=== PATIENT | female | born 1990 | race Caucasian/White ===

== ENCOUNTER 2025-04-27 17:58 | Emergency (ER) | payer BC, SELFPAY ==
[2025-04-27 18:01] VITALS: BP 132/86
[2025-04-27 18:29] LABS: Hematocrit 37.7 % (37.0-47.0); Hemoglobin 12.4 g/dL (12.0-16.0); Mean Corp Hgb Conc. 32.9 g/dL (33.0-37.0); Mean Corpuscular Volume 91.5 fL (81.0-99.0); Nucleated Red Blood Cells % 0 %; Platelet Count 192 10^3/uL (130-400); Red Cell Dist. Width 11.8 % (11.5-14.5)
[2025-04-27 18:45] LABS: HCG, Serum Qualitative Screen Negative
[2025-04-27 18:49] LABS: ALT (SGPT) < 10 U/L (0-35); AST (SGOT) 17 U/L (14-36); Albumin 4.8 g/dl (3.5-5.0); Alkaline Phosphatase 30 U/L (38-126); Blood Urea Nitrogen 13 mg/dl (7-17); Calcium 9.7 mg/dl (8.4-10.2); Carbon Dioxide 27 mmol/L (22-30); Chloride 107 mmol/L (98-107); Glucose 97 mg/dl (70-99); Potassium 4.0 mmol/L (3.5-5.1); Sodium 139 mmol/L (135-145); Total Protein 7.5 g/dl (6.3-8.2); eGFR > 60.00
[2025-04-27 20:41] VITALS: BP 110/74
--- NOTE | 2025-04-27 23:14 | ED.GENMED ---
History of Present Illness
General
Chief Complaint: Headache
Source: patient
Exam Limitations: none
Time Seen by Provider: 04/27/25 22:53
Nursing documentation reviewed up to this point in time: agreed with
History of Present Illness
History of Present Illness:
Note:
CHIEF COMPLAINT(S)
Severe headache.
HISTORY OF PRESENT ILLNESS
The patient is a 34-year-old female who presents with a severe headache that began about a week ago. The headache came on mildly and has persisted since onset. The patient describes the pain as a pressure-like sensation, primarily located in the
occipital region, radiating downwards. She notes that it is aggravated by position changes, particularly when standing, which causes a feeling of impending head burst. No fever has been reported, and the patient has not experienced congestion. The
patient mentioned a history of sensitivity to caffeine, noting past migraines induced by caffeine intake. Despite stopping caffeine consumption, the headache persists. She observes some relief upon exercising. The pain is not typical of her usual
migraines, as it does not respond to ibuprofen. The patient denies any chest pain, upper limb numbness, or palpitations. Light does not exacerbate the headache as it typically would with a migraine. She has experienced occasional nausea. She denies
any recent overexertion in hot weather and reports her last menstrual period as normal. No control use or other medications were noted. Other contributing factors considered include tension headaches or possible caffeine withdrawal due to her
hypersensitivity to caffeine.
Evaluated by her PCP today and sent to the ED for further evaluation.
PHYSICAL EXAM
General: Alert, no acute distress.
Skin: Warm, dry.
Head: Normocephalic, atraumatic.
Neck: Supple, trachea midline. No midline bony tenderness. Very minimal tenderness paracervical without palpable muscle spasm. There is full range of motion without difficulty nor pain. No meningismus. No soft tissue swelling. No rash
appreciated. No adenopathy.
Eyes, Ears, Nose, Mouth, and Throat: Oral mucosa moist. Minimally boggy pale blue turbinates. No rhinorrhea. TMs are clear bilaterally.
Cardiovascular: Regular rate and rhythm. No murmur. Normal peripheral perfusion, no edema.
Respiratory: Respirations are non-labored. Lungs are clear to auscultation.
Gastrointestinal: Abdomen nondistended. Soft, nontender.
Back: Normal range of motion, normal alignment. No palpable bony tenderness. Straight leg raising is negative bilaterally.
Musculoskeletal: Normal ROM, normal strength.
Neurological: Alert and oriented to person, place, time, and situation, no focal neurological deficit observed. Motor strength is 5/5 bilaterally. Gross sensation is intact. Cranial nerves II through XII grossly intact.
Psychiatric: Cooperative, appropriate mood & affect.
PROBLEM LIST
Acute: Severe headache lasting several days, with characteristics suggestive of tension-type or caffeine-withdrawal headache.
Patient is afebrile and reports no recent fever. She denies recent rash.
PLAN
- Initiate intravenous therapy and administer Ketorolac and Prochlorperazine for headache relief.
- Administer Diphenhydramine to mitigate any restlessness potentially induced by Prochlorperazine.
- Conduct a CT scan of the head to rule out any structural cause for the headache.
- Add inflammatory markers to current blood work.
- Monitor the patient for a few hours post-treatment to assess symptom relief.
DIFFERENTIAL DIAGNOSIS
The Differential Diagnosis includes, in no particular order and is not limited to:
1. Tension headache
2. Caffeine withdrawal headache
3. Migraine
4. Cervicogenic headache
5. Meningitis (low suspicion)
6. Sinus headache
7. Subarachnoid hemorrhage (extremely low suspicion due to benign neurologic evaluation)
8. Cluster headache
9. Intracranial mass or lesion
10. Hypertensive headache
Past History
Past History
ED Past Medical History: None
ED Past Surgical History: Other (Jaw surgery, wisdom teeth)
Social History
Tobacco: Non-smoker
Alcohol: None
Drug: None
Personal:
Living: with family
Employment: Employed
Family History
Family History: Other (Noncontributory)
Phy Exam
Physical Exam
Physical Exam:
As above
Course
Orders/Labs/Results
Orders:
Orders
04/27/25 18:06
Test Result ONCE
04/27/25 18:19
C-Reactive Protein Urgent
Comment: ADD ON
Complete Blood Count/With Diff Urgent
Comprehensive Metabolic Panel Urgent
Erythrocyte Sed Rate Urgent
Comment: ADD ON
HCG, Serum Qualitative Screen Urgent
Lyme Progressive Urgent
04/27/25 22:57
Add On- LAB Urgent
Tests Added?: sed rate, CRP
04/27/25 23:12
CT Head W/o Iv Contrast Urgent
Comment:
Reason For Exam: severe post headache
0.9% Sodium Chloride 1000 ml [Nss] 1,000 ml IV BOLUS
Diphenhydramine [Benadryl] 25 mg IV NOW STA
Ketorolac [Toradol] 15 mg IV NOW STA
Prochlorperazine [Compazine] 10 mg IV NOW STA
04/28/25 01:02
Dexamethasone Sod Phosphate [Decadron] 10 mg IV NOW STA
Abnormal Lab Results
04/27/25
18:19
RBC 4.12 L 10^6/uL
(4.20-5.40)
MCHC 32.9 L g/dL
(33.0-37.0)
MPV 10.8 H fL
(7.4-10.4)
Alkaline Phosphatase 30 L U/L
(38-126)
04/27/25 18:19
04/27/25 18:19
Vital Signs
Initial and Last Documented VS:
Initial Vital Signs
Temp Pulse Resp BP Pulse Ox
98.8 F 74 16 132/86 98
04/27/25 18:01 04/27/25 18:01 04/27/25 18:01 04/27/25 18:01 04/27/25 18:01
Last Documented Vital Signs
Temp Pulse Resp BP Pulse Ox
98.5 F 70 15 97/58 97
04/27/25 20:41 04/28/25 05:15 04/28/25 05:15 04/28/25 05:00 04/28/25 05:15
MDM/Problems Addressed
Differential Diagnosis Includes:
As above
*Radiology
Radiology exam reviewed: radiology read reviewed (CT of the head is unremarkable)
*Pulse Oximetry
SaO2: 100
Oxygen Mode of Delivery: Room air
Patient hypoxic: no
*Critical Care Note
Total Time (30-74mins, 75-104mins- exclusive of procedures): Not Applicable
Update Note
Update Note:
01:00
CT of the head is unremarkable.
Inflammatory markers are normal/negative.
Patient feeling markedly improved with near complete relief of headache. Resting comfortably.
Will continue IV fluids until completed. Will give a one-time dose of IV Decadron.
I suspect migraine versus tension headache, exacerbated by caffeine withdrawal.
At this point, recommend she continue to avoid caffeine.
Stay well-hydrated on a daily basis.
Will plan for discharge to home with follow-up with PCP.
Return precautions discussed.
06:45
Patient has been sleeping soundly throughout the morning.
Easily awakens.
She remains headache free.
Discharge to home with plan as above.
ED Attending Note
-
Portions of this chart may have been created with voice recognition software.� Occasional wrong word or��sound alike� substitutions may have occurred due to the inherent limitations of voice recognition software.
Discharge Plan
Departure
Patient Disposition: Home (Routine Discharge)
Date of Disposition: 04/28/25
Time of Disposition: 06:27
Patient with high blood pressure during this ER visit?: No
Condition: Good
Discharge Problem:
tension vs migraine headache, Headache due to caffeine withdrawal syndrome
Instructions: Migraines (DC)
Prescriptions:
No Action
acetaminophen 325 MG tablet
650 mg PO Q4HPRN PRN (Reason: mild pain) 0RF
ibuprofen 600 MG tablet
600 mg PO Q4HPRN PRN (Reason: cramps) 0RF
Referrals:
Polly Jorgensen DO [Family Provider, Family Practice] - Call in 1-3 days for appt
Interventions
Interventions:
*Risk Screen - Suicide Last Done: 04/27/25 18:01
*General Assessment Last Done: 04/27/25 21:54
*Neglect/Abuse Screening Last Done: 04/27/25 18:01
*ED- Fall Risk Assessment Last Done: 04/27/25 21:54
*ED COVID-19 Vaccine History Last Done: 04/27/25 21:54
ED- Neurological Assessment Last Done: 04/27/25 21:54
Discharge Date and Time
Print Language: [place]
[2025-04-27 23:35] LABS: C-Reactive Protein < 5.00 mg/L (0.0-10.00)
[2025-04-28] VITALS (9 sets, daily range): BP systolic 80–124; BP diastolic 44–83; BMI 22.0
[2025-04-28] MEDS: NSS 1000 IV
[2025-04-28] MEDS: TORADOL 15 MG IV (00:03)
[2025-04-28] MEDS: BENADRYL 25 MG IV (00:07)
[2025-04-28] MEDS: COMPAZINE 10 MG IV (00:10)
[2025-04-28] MEDS: DECADRON 10 MG IV (01:44)
== END 2025-04-28 07:05 | disposition home or self-care (01) ==
LOC: EMR 17:58
PROVIDERS: Emergency Medicine; EMERGENCY PHYSICIAN Emergency Medicine; FAMILY PHYSICIAN Family Medicine
DX: R51.9 Headache, unspecified (principal); F15.93 Other stimulant use, unspecified with withdrawal
CPT/HCPCS: 96374; 96375; 96361; 99284; 70450; 80053; 84703; 85025; 85652; 86140; 86618